=== PATIENT | female | born 2000 | race Caucasian/White ===

== ENCOUNTER 2024-02-09 21:48 | Emergency (ER) | payer SELFPAY ==
[2024-02-09 21:48] VITALS: BP 140/60; PULSE 86; RESP 16; TEMP 36.9; O2SAT 100; BMI 38.9
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
[2024-02-09 22:07] LABS: Chloride 107 mmol/L (98-107); Potassium 4.1 mmoL/L (3.5-5.1); Sodium 139 mmol/L (136-145)
[2024-02-09 22:08] LABS: Basophils # 0.1 K/mm3 (0-0.2); Basophils % 0.7 % (0.1-2.0); Eosinophils # 0.2 K/mm3 (0.0-0.4); Eosinophils % 1.5 % (0.1-12.0); Hematocrit 38.7 % (37.0-47.0); Hemoglobin 12.9 g/dL (12.2-16.2); Lymphocytes # 2.8 K/mm3 (0.7-4.5); Lymphocytes % 27.9 % (10-50); Mean Corpuscular HGB Conc 33.4 g/dL (31.8-35.4); Mean Corpuscular Hemoglobin 28.5 pg (27.0-31.2); Mean Corpuscular Volume 85.2 fl (81-99); Mean Platelet Volume 7.9 fl (7.4-10.4); Monocytes # 0.6 K/mm3 (0.1-1.0); Monocytes % 6.4 % (1.7-9.3); Neutrophils # 6.3 K/mm3 (1.8-7.8); Neutrophils % 63.5 % (37.0-80.0); Platelet Count 222 K/mm3 (142-424); Red Blood Count 4.54 M/mm3 (4.20-5.40); Red Cell Distribution Width 13.8 % (11.5-17.5); White Blood Count 9.9 K/mm3 (4.8-10.8)
[2024-02-09 22:10] LABS: Anion Gap 11.1 mEq/L (5-15); Blood Urea Nitrogen 15 mg/dl (7-17); Calcium 8.9 mg/dl (8.4-10.2); Carbon Dioxide 25 mmol/L (22.0-30.0); Creatinine Clearance Estimated 188 mL/min (50-200); Estimated Glomerular Filt Rate 106 ml/min (>60); GFR (African American) 128 ML/MIN (>60); Glucose 80 mg/dl (74-100)
--- NOTE | 2024-02-09 22:15 | PC.NURSE ---
Patient taken to CT
[2024-02-09 22:16] LABS: HCG Qualitative, Serum Negative (Negative)
[2024-02-09 22:21] LABS: Lactate Venous 1.3 mmol/L (0.4-2.0); VBG Base Excess -3.1 mmol/L (-2.4-2.3); VBG HCO3 22.8 mmol/L (23-30); VBG Oxygen Saturation 74.4 % (50-70); VBG PCO2 43.6 mmol/L (35-51); VBG PH 7.34 mmol/L (7.31-7.41); VBG Total CO2 24.1 mmol/L (23-27)
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
[2024-02-09 22:32] LABS: Ethyl Alcohol < 10 mg/dl (0-10)
[2024-02-09] MEDS: LACTATED RINGERS 1000ML 1,000 ML 999 ML IV (22:40)
--- NOTE | 2024-02-09 22:40 | PC.NURSE ---
Patient back from CT
[2024-02-09] MEDS: KETOROLAC 30MG/ML VIAL 15 MG IV (22:42)
[2024-02-09] MEDS: TET/DIPHTH/PERT-ADULT 0.5ML SYRINGE 0.5 ML IM (22:42)
[2024-02-09] MEDS: IOPAMIDOL-370 (76%);100ML BOTTLE 180 ML IV (22:45)
[2024-02-09] MEDS: 0.9 % SODIUM CHLORIDE 50 ML VIAL IV (22:45)
[2024-02-09] MEDS: SODIUM CHLORIDE 0.9% 10ML SYR (RAD ONLY) 10 ML IV (22:45)
[2024-02-09 22:47] VITALS: BP 155/85; PULSE 91; RESP 20; O2SAT 100
[2024-02-09 23:00] VITALS: BP 165/77; PULSE 98; RESP 20; O2SAT 100
[2024-02-09 23:15] VITALS: BP 151/76; PULSE 96; RESP 20; O2SAT 100
[2024-02-09 23:30] VITALS: BP 142/72; PULSE 98; RESP 20; O2SAT 100
[2024-02-09 23:43] VITALS: BP 142/72; PULSE 96; RESP 18; TEMP 36.9; O2SAT 99
[2024-02-09 23:45] LABS: Amphetamine/Metha Screen,Urine Negative ng/ml (<1000); Barbiturates Screen,Urine Negative ng/ml (<200)
[2024-02-09 23:46] LABS: Benzodiazepines Screen,Urine Negative ng/ml (<200); Cannabinoid Screen,Urine Negative ng/ml (<50)
[2024-02-09 23:47] LABS: Cocaine Screen,Urine Negative ng/ml (<300)
[2024-02-09 23:48] LABS: Methadone Screen,Urine Negative ng/ml (<300); Phencyclidine Screen,Urine Negative ng/ml (<25)
[2024-02-09 23:49] LABS: Opiate Screen,Urine Negative ng/ml (<300)
== END 2024-02-09 23:53 | disposition home or self-care (01) ==
PROVIDERS: Emergency Provider Emergency Medicine
DX: S01.81XA Laceration without foreign body of other part of head, initial encounter (principal); M25.561 Pain in right knee; V49.50XA Passenger injured in collision with unspecified motor vehicles in traffic accident, initial encounter; Y92.410 Unspecified street and highway as the place of occurrence of the external cause; Z23 Encounter for immunization
CPT/HCPCS: 12011; 70450; 70486; 70496; 70498; 71045; 71275; 72125; 72128; 72131; 72170; 73552; 73562; 73590; 74174; 80048; 80307; 82803; 84703; 85025; 90471; 90715; 96361; 96374; 99285; Q9967